=== PATIENT | female | born 1980 ===

== ENCOUNTER 2019-12-18 12:14 | Outpatient (CLI) | payer MEDICAID ==
[~2019-12-18] VITALS: Ht 165.1 cm; Wt 125.0 kg
[2019-12-18] VITALS (27 sets, daily range): BP systolic 108–138; BP diastolic 53–95; PULSE 70–88; TEMP 97.7–98.7
--- NOTE | 2019-12-18 11:45 | NUR ---
Patient to LR1 by stretcher/ems. Patient off stretcher and assisted into bed. Patient states "0830 this morning I felt a gush of fluid and then it happened again and then I began to bleed, I called 911 and got to the hospital and delivery baby at 0915 and they are not sure if the placenta delivered or not but alot of blood and clots came out". States she is feeling okay at this time. VSS and assessment completed 1200: Dr. Stallings at bedside and discussing options at this time. SVE-done at this time per Dr. Sandoval. Patient agrees to try cytotec for delivery of placenta. 1215: Cytotec placed vaginally and patient tolerates well. Patient updated on plan of care and resting at this time.
[2019-12-18] MEDS ORDERED: ENDOMETRIN100 MG VG (12:31)
[2019-12-18] MEDS ORDERED: BONJESTA ER 201 EACH PO (12:31)
--- NOTE | 2019-12-18 13:15 | NUR ---
Patient up to bathroom to void and fist size clot expressed in toilet. Pericare done and pateint assisted back to bed. Dr. Sandoval called an updated and no new orders at this time.
--- NOTE | 2019-12-18 17:00 | NUR ---
Dr. Sandoval at bedside assessing patient. Dr. Sandoval checking cervix with speculum and attemts to remove placenta. Dr. Sandoval discusses the need for D&C and patient agrees with plan of care. 1715: Patient prepped and risk factors discussed. 1720: Patient ambulatory to OR for D&C. Dr. Sandoval orders for patient to be discharged home if patient is able to walk and keep fluids/snacks down after one hour. 1752: Patient to LR1 via bed for recovery. Bleeding and vital signs stable. 1815: Report given to CASIMIRO MATAMOROS.
--- NOTE | 2019-12-18 18:00 | NUR ---
Patient states that she received Rhogam on 11/24/19 when she went to ER in [place] for spotting. Dr. Sandoval updated and states that if patient is refusing another dose of Rhogam that is okay and should be adequately dosed at this time. Patient refuses another dose of Rhogam due to just getting it last month.
--- NOTE | 2019-12-18 19:15 | NUR ---
1914- RN to bedside. Patient verbalizes being ready to go home. Helped patient to standing position so she could walk a little bit. Pt. bleeding small/moderate amount with no clots noted. Pt. requesting to take shower before she leaves. Pt. walking with steady gait and denies feeling light headed, dizzy or unwell. 1919- IV and fluids discontinued. 1924- Pt. in the shower.
== END 2019-12-18 20:00 | disposition home or self-care (01) ==
LOC: LDRO 12:14
DX: O42.912 Preterm premature rupture of membranes, unspecified as to length of time between rupture and onset of labor, second trimester (principal); O72.2 Delayed and secondary postpartum hemorrhage; Z3A.16 16 weeks gestation of pregnancy; Z37.1 Single stillbirth; O03.1 Delayed or excessive hemorrhage following incomplete spontaneous abortion
CPT/HCPCS: J2405; J2704; J3010; J7120